=== PATIENT | male | born 1930 | race Caucasian/White ===

== ENCOUNTER 2016-11-23 17:18 | Inpatient (IN) | payer OTHER ==
[~2016-11-23] VITALS: Ht 182.9 cm; Wt 79.6 kg
[~2016-11-23 17:18] MED LIST: AMBIEN10 MG PO; ASPIR 8181 M1 PO; CATAPRES0.1 MG PO; CRANBERRY300 MG PO; CRESTOR5 MG PO; FLOMAX0.4 MG PO; HYDRALAZINE HCL25 MG PO; HYDROCODON-ACE1 EAC1 PO; LANOXIN125 MCG PO; LISINOPRIL40 MG PO; LOPRESSOR100 M1 PO; METOPROLOL TART25 MG PO; MULTIGEN PLUS1 EACH PO; VITAMIN D-32000 UNIT PO
[2016-11-23 17:49] LABS: EOSINOPHIL (%) 2.1 % (0-5); EOSINOPHIL COUNT 0.2 K/uL (0-0.3); IMMATURE GRANULOCYTE (%) 1.5 % (0.0-0.7); IMMATURE GRANULOCYTE COUNT 0.1 K/uL; LYMPHOCYTE COUNT 0.4 K/uL (1.0-2.8); MCH 29.1 PG (29.0-34.0); MCHC 32.5 G/DL (30.0-36.0); MCV 89.4 FL (86-99); MEAN PLAT.VOLUME 9.2 uM^3 (9.0-12.4); MONOCYTE COUNT 0.4 K/uL (0-0.8); NEUTROPHIL (%) 84.4 % (45-76); PLATELET COUNT 270 K/uL (156-360); RBC DIS.WIDTH-CV 16.5 % (11.8-14.6); RBC DIS.WIDTH-SD 52.3 % (39-53); RED BLOOD COUNT 3.58 M/uL (4.00-5.50); WHITE BLOOD COUNT 7.1 K/uL (4.1-10.2)
[2016-11-23 17:59] LABS: CHLORIDE 99 mEq/L (99-109); SODIUM 134 mEq/L (136-147)
[2016-11-23 18:03] LABS: ANION GAP 14 MEQ/L (2-14); GLUCOSE 240 mg/dL (70-99); POTASSIUM 5.5 mEq/L (3.7-5.4)
[2016-11-23 18:04] LABS: TOTAL BILIRUBIN 0.5 mg/dL (0.0-1.0)
[2016-11-23 18:05] LABS: ALKALINE PHOSPHATASE 114 IU/L (3-129); GFR ESTIMATE (CALCULATED) 41 mL/min/
[2016-11-23 18:06] LABS: UREA NITROGEN (BUN) 54 mg/dL (9-23)
[2016-11-23 18:12] LABS: TROP-I INTERPRETATION NEGATIVE; TROPONIN-I 0.03 ng/mL (0.0-0.30)
[2016-11-23] MEDS ORDERED: ATORVASTATIN CA40 MG PO (20:21)
[2016-11-23] MEDS ORDERED: MIRALAX17 GM PO (20:22)
[2016-11-23] MEDS ORDERED: DAILY VALUE1 EACH PO (20:29)
[2016-11-23] MEDS ORDERED: TOPROL XL200 MG PO (20:30)
[2016-11-23] MEDS ORDERED: PLAVIX75 MG PO (20:30)
[2016-11-23] MEDS ORDERED: FUROSEMIDE80 MG PO (20:32)
[2016-11-23] MEDS ORDERED: AFRIN,GENASAL D15 ML BOTH NARES (20:33)
[2016-11-23] MEDS ORDERED: DULCOLAX10 MG PR (20:40)
[2016-11-23] MEDS ORDERED: MILK OF MAGN PO (20:41)
[2016-11-23] MEDS ORDERED: NORCO 7.5/321 TABLET PO (20:42)
[2016-11-24] VITALS (12 sets, daily range): BP systolic 113–140; BP diastolic 56–75
[2016-11-24 02:23] LABS: INFLUENZA A VIRAL ANTIGEN POSITIVE; INFLUENZA B VIRAL ANTIGEN NEGATIVE
[2016-11-24 03:48] LABS: METH RESISTANT S AUREUS PCR NEGATIVE (NEGATIVE)
[2016-11-24 04:04] LABS: PROBE CHECK PASS; SPECIMEN PROCESSING CONTROL PASS
[2016-11-24 05:49] LABS: EOSINOPHIL (%) 0.3 % (0-5); HEMATOCRIT 29.9 % (38.0-50.0); IMMATURE GRANULOCYTE (%) 1.3 % (0.0-0.7); IMMATURE GRANULOCYTE COUNT 0.1 K/uL; INSTRUMENT ABS NEUTROPHIL CT 4.4 K/uL; LYMPHOCYTE COUNT 0.9 K/uL (1.0-2.8); MCH 29.4 PG (29.0-34.0); MCHC 32.4 G/DL (30.0-36.0); MCV 90.6 FL (86-99); MONOCYTE (%) 9.6 % (3-12); MONOCYTE COUNT 0.6 K/uL (0-0.8); NEUTROPHIL (%) 73.4 % (45-76); NEUTROPHIL COUNT 4.4 K/uL (1.8-6.4); NRBC (%) 0.3 /100 WBC (0-0); RBC DIS.WIDTH-CV 16.8 % (11.8-14.6); RBC DIS.WIDTH-SD 53.2 % (39-53); WHITE BLOOD COUNT 6.1 K/uL (4.1-10.2)
[2016-11-24 06:13] LABS: ANION GAP 10 MEQ/L (2-14); CHLORIDE 103 MEQ/L (99-109); GFR ESTIMATE (CALCULATED) 41 mL/min/; GLUCOSE 167 mg/dL (70-99); POTASSIUM 5.1 MEQ/L (3.7-5.4); SAMPLE HEMOLYSIS CHECK 0; SAMPLE ICTERIC CHECK 0; SAMPLE LIPEMIA CHECK 0; SODIUM 135 MEQ/L (136-147); UREA NITROGEN (BUN) 53 mg/dL (9-23)
[2016-11-24 06:32] LABS: MEAN PLAT.VOLUME 9.8 uM^3 (9.0-12.4); PLAT.SUFFICIENCY ADEQUATE; PLATELET COUNT 208 K/uL (156-360)
[2016-11-24 09:38] LABS: TROP-I INTERPRETATION INDETERMINATE; TROPONIN-I 0.37 ng/mL (0.0-0.30)
[2016-11-24 14:21] LABS: ADD MIUA? YES; BILIRUBIN NEGATIVE; BLOOD NEGATIVE; COLOR YELLOW ((YELLOW)); GLUCOSE (STRIP) NEGATIVE; KETONES NEGATIVE; LEUKOCYTES LARGE; NITRITE NEGATIVE; PROTEIN (STRIP) 100; SPECIFIC GRAVITY 1.015 (1.000-1.030); UROBILINOGEN 0.2 MG/DL (0.2-1.0)
[2016-11-24 14:38] LABS: BACTERIA 1+ /HPF; EPITHELIAL CELLS 2+ /HPF; HYALINE CASTS 0-5 /LPF; MUCUS TRACE /LPF; RED BLOOD CELLS NONE SEEN /HPF (0-5); UCUL ADDED? YES; WHITE BLOOD CELLS TNTC /HPF (0-5); WHITE BLOOD CELLS CLUMP FEW /HPF (0-5)
[2016-11-25] VITALS (17 sets, daily range): BP systolic 0–131; BP diastolic 0–76
[2016-11-25 06:08] LABS: ALKALINE PHOSPHATASE 91 IU/L (3-129); ANION GAP 12 MEQ/L (2-14); CHLORIDE 103 MEQ/L (99-109); GFR ESTIMATE (CALCULATED) 41 mL/min/; POTASSIUM 4.6 MEQ/L (3.7-5.4); SAMPLE HEMOLYSIS CHECK 0; SAMPLE ICTERIC CHECK 0; SAMPLE LIPEMIA CHECK 0; SODIUM 137 MEQ/L (136-147); TOTAL BILIRUBIN 0.6 MG/DL (0.0-1.0); UREA NITROGEN (BUN) 57 mg/dL (9-23)
[2016-11-25 06:18] LABS: GLUCOSE 91 mg/dL (70-99)
[2016-11-25 07:11] LABS: EOSINOPHIL (%) 0 % (0-5); HEMATOCRIT 27.8 % (38.0-50.0); IMMATURE GRANULOCYTE (%) 1.3 % (0.0-0.7); IMMATURE GRANULOCYTE COUNT 0.1 K/uL; INSTRUMENT ABS NEUTROPHIL CT 2.6 K/uL; LYMPHOCYTE COUNT 0.8 K/uL (1.0-2.8); MCH 28.7 PG (29.0-34.0); MCHC 31.7 G/DL (30.0-36.0); MCV 90.6 FL (86-99); MEAN PLAT.VOLUME 9.9 uM^3 (9.0-12.4); MONOCYTE (%) 12.1 % (3-12); MONOCYTE COUNT 0.5 K/uL (0-0.8); NEUTROPHIL (%) 66.4 % (45-76); NEUTROPHIL COUNT 2.6 K/uL (1.8-6.4); PLATELET COUNT 171 K/uL (156-360); RBC DIS.WIDTH-SD 53.8 % (39-53); RED BLOOD COUNT 3.07 M/uL (4.00-5.50)
[2016-11-25 07:15] LABS: WHITE BLOOD COUNT 3.9 K/uL (4.1-10.2)
[2016-11-25 07:57] LABS: TROP-I INTERPRETATION NEGATIVE; TROPONIN-I 0.21 ng/mL (0.0-0.30)
[2016-11-25 08:07] LABS: INTERNAL CONTROL VALID? YES
[2016-11-25 08:33] LABS: IMM.RETIC FRACTION 21.5 % (3-19); RETIC HGB EQUIVALENT 34.3 (28-36); RETICULOCYTE COUNT 2.9 % (0.5-1.8)
[2016-11-25 09:20] LABS: FERRITIN 594 NG/ML (22-322)
[2016-11-25 09:39] LABS: IRON 18 MCG/DL (35-150)
[2016-11-26 03:31] VITALS: BP 121/59
[2016-11-26 06:27] LABS: EOSINOPHIL (%) 0 % (0-5); HEMATOCRIT 24.6 % (38.0-50.0); IMMATURE GRANULOCYTE (%) 0.8 % (0.0-0.7); INSTRUMENT ABS NEUTROPHIL CT 2.9 K/uL; LYMPHOCYTE COUNT 0.5 K/uL (1.0-2.8); MCH 28.5 PG (29.0-34.0); MCHC 31.7 G/DL (30.0-36.0); MCV 89.8 FL (86-99); MEAN PLAT.VOLUME 9.5 uM^3 (9.0-12.4); MONOCYTE (%) 8.7 % (3-12); MONOCYTE COUNT 0.3 K/uL (0-0.8); NEUTROPHIL COUNT 2.9 K/uL (1.8-6.4); PLATELET COUNT 165 K/uL (156-360); RBC DIS.WIDTH-CV 17.2 % (11.8-14.6); RBC DIS.WIDTH-SD 55.6 % (39-53); RED BLOOD COUNT 2.74 M/uL (4.00-5.50); WHITE BLOOD COUNT 3.8 K/uL (4.1-10.2)
[2016-11-26 07:08] LABS: ALKALINE PHOSPHATASE 93 IU/L (3-129); ANION GAP 11 MEQ/L (2-14); CHLORIDE 105 MEQ/L (99-109); GFR ESTIMATE (CALCULATED) 38 mL/min/; GLUCOSE 85 mg/dL (70-99); POTASSIUM 4.3 MEQ/L (3.7-5.4); SAMPLE HEMOLYSIS CHECK 0; SAMPLE ICTERIC CHECK 0; SAMPLE LIPEMIA CHECK 0; SODIUM 138 MEQ/L (136-147); UREA NITROGEN (BUN) 64 mg/dL (9-23)
[2016-11-26 07:10] LABS: TOTAL BILIRUBIN 0.4 MG/DL (0.0-1.0)
[2016-11-26 08:41] VITALS: BP 126/60
[2016-11-26 11:04] VITALS: BP 115/65
[2016-11-26 11:21] LABS: POINT-OF-CARE METER ID UU14174216
[2016-11-26 15:24] VITALS: BP 111/69
[2016-11-26 18:20] VITALS: BP 110/62
== END 2016-11-26 23:33 | DRG 871 ==
LOC: EME 17:18 → 4WEST 22:40 → EDOF 22:40 → 4WEST 11-24 01:54 → 4EAST 11-25 22:14
PROVIDERS: Emergency Medicine; Hospitalist
DX: A41.9 Sepsis, unspecified organism (principal); J10.00 Influenza due to other identified influenza virus with unspecified type of pneumonia; I50.23 Acute on chronic systolic (congestive) heart failure; N17.9 Acute kidney failure, unspecified; F03.90 Unspecified dementia, unspecified severity, without behavioral disturbance, psychotic disturbance, mood disturbance, and anxiety; I13.0 Hypertensive heart and chronic kidney disease with heart failure and stage 1 through stage 4 chronic kidney disease, or unspecified chronic kidney disease; N39.0 Urinary tract infection, site not specified; N18.3 Chronic kidney disease, stage 3 (moderate); I48.91 Unspecified atrial fibrillation; D64.9 Anemia, unspecified; E78.5 Hyperlipidemia, unspecified; I25.10 Atherosclerotic heart disease of native coronary artery without angina pectoris; E11.22 Type 2 diabetes mellitus with diabetic chronic kidney disease; I27.2 Other secondary pulmonary hypertension; Z66 Do not resuscitate; N40.1 Benign prostatic hyperplasia with lower urinary tract symptoms; Y95 Nosocomial condition; R09.02 Hypoxemia; J45.909 Unspecified asthma, uncomplicated; G89.29 Other chronic pain; N28.1 Cyst of kidney, acquired; I42.9 Cardiomyopathy, unspecified; E87.2 Acidosis
CPT/HCPCS: 70450; 71010; 76770; 80048; 80053; 81003; 82272; 82607; 82728; 82746; 82948; 83540; 83605; 83735; 83880; 84100; 84466; 84484; 85025; 85045; 87040; 87070; 87077; 87086; 87186; 87205; 87449; 87502; 87641; 88108; 92610 GN; 93005; 93306; 94640; 94640 76; 94667; 94668; 94760; 94799; 97530 GP; 99202; 99281; 99284; J0456; J1644; J1956; J2543; J2920; J3260; J3370; J7030; J7050; J7120; J7644